=== PATIENT | female | born 1975 | race Hispanic/Latino ===

== ENCOUNTER 2021-02-10 11:22 | Outpatient (CLI) | payer SELFPAY | END 2021-02-10 11:23 | disposition home or self-care (01) | LOC: LABBT 11:22 | PROVIDERS: ATTEND Surgery | DX: Z01.812 Encounter for preprocedural laboratory examination (principal); D24.1 Benign neoplasm of right breast | CPT/HCPCS: 80048; 84703; 85025 ==

== ENCOUNTER 2023-07-12 14:04 | Outpatient (CLI) | payer OTHER | END 2023-07-12 14:05 | disposition home or self-care (01) | LOC: BICULT 14:04 | PROVIDERS: ATTEND Nurse Practitioner Family | DX: R10.32 Left lower quadrant pain (principal) | CPT/HCPCS: 76856 ==